=== PATIENT | male | born 2000 | race Two or more races ===

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

== ENCOUNTER 2020-07-27 08:14 | Emergency (ER) | payer MEDICAID ==
[~2020-07-27] VITALS: Ht 185.4 cm; Wt 122.5 kg
[2020-07-27 08:15] VITALS: BP 154/100
== END 2020-07-27 09:20 | disposition left against medical advice (07) ==
LOC: ER 08:14
DX: R11.2 Nausea with vomiting, unspecified (principal); Z53.21 Procedure and treatment not carried out due to patient leaving prior to being seen by health care provider

== ENCOUNTER 2020-09-06 10:24 | Emergency (ER) | payer MEDICAID ==
[~2020-09-06] VITALS: Ht 185.4 cm; Wt 122.5 kg
[2020-09-06 12:00] VITALS: BP 149/102
[2020-09-06] MEDS ORDERED: IBUPROFEN 800 MG TAB PO ONE (12:15)
== END 2020-09-06 13:00 | disposition home or self-care (01) ==
LOC: ER 10:24
DX: S63.277A Dislocation of unspecified interphalangeal joint of left little finger, initial encounter (principal); F17.210 Nicotine dependence, cigarettes, uncomplicated; F12.10 Cannabis abuse, uncomplicated; W26.8XXA Contact with other sharp object(s), not elsewhere classified, initial encounter; Y93.89 Activity, other specified; Y92.89 Other specified places as the place of occurrence of the external cause; Y99.8 Other external cause status
CPT/HCPCS: 26770; 73140

== ENCOUNTER 2021-03-15 02:36 | Emergency (ER) | payer MEDICAID ==
[~2021-03-15] VITALS: Ht 182.9 cm; Wt 95.3 kg
[2021-03-15 02:50] VITALS: BP 153/94
[2021-03-15] MEDS ORDERED: SODIUM CHLORIDE 0.9% 1,000 ML IV ONE (04:00)
[2021-03-15 04:13] LABS: Basophils # (auto) 0 10 ^3/uL (0-0.2); Basophils % (auto) 0.2 % (0.0-2.0); Eosinophils # (auto) 0 10 ^3/uL (0-0.8); Eosinophils % (auto) 0.3 % (0.0-7.0); Hematocrit 43.4 % (41.0-53.0); Lymphocytes # (auto) 1.1 10 ^3/uL (0.4-5.4); Lymphocytes % (auto) 9.9 % (10.0-50.0); Mean Corpuscular Hemoglobin 30.2 pg (28.0-32.0); Mean Corpuscular Hgb Conc. 34.5 g/dL (32.0-36.0); Mean Corpuscular Volume 87.5 fL (80.0-100.0); Monocytes # (auto) 0.7 10 ^3/uL (0-1.3); Monocytes % (auto) 6.9 % (0.0-12.0); Neutrophils # (auto) 8.9 10 ^3/uL (1.6-8.6); Neutrophils % (auto) 82.7 % (37.0-80.0); Nucleated Red Blood Cells % 0.1 %; Red Blood Cells 4.96 10^6/uL (4.5-5.90); Red Cell Distribution Width 13.3 % (11.8-14.3); White Blood Cell 10.8 10^3/uL (4.4-10.8)
[2021-03-15 04:27] LABS: Anion Gap 8 (5-15); Blood Urea Nitrogen 13 mg/dL (7-18); Calcium 7.8 mg/dL (8.5-10.1); Carbon Dioxide 26 mmol/L (21-32); Chloride 103 mmol/L (98-107); Sodium 137 mmol/L (136-145)
[2021-03-15 04:30] LABS: Alanine Aminotransferase 73 U/L (16-61); Aspartate Aminotransferase 31 U/L (15-37); BUN/Creatinine Ratio 15.5; Blood Alcohol < 3.0 mg/dL (0-5); GFR African American 148 mL/min; GFR Non-African American 123 mL/min; Glucose 98 mg/dL (74-106)
[2021-03-15 04:32] LABS: Alkaline Phosphatase 118 U/L (45-117); Bilirubin, Total 0.6 mg/dL (0.2-1.0); Total Protein 7.4 g/dL (6.4-8.2)
[2021-03-15 04:35] LABS: Salicylate < 1.7 mg/dL (2.8-20.0)
[2021-03-15 04:44] LABS: Acetaminophen < 2.0 ug/mL (10-30)
[2021-03-15 04:50] LABS: Alcohol, Urine < 3.0 mg/dL (0-10); Amphetamine Screen, Urine NEGATIVE (NEGATIVE); Barbiturate Scree,Urine NEGATIVE (NEGATIVE); Cannabinoid Screen, Urine POSITIVE (NEGATIVE)
[2021-03-15 04:58] LABS: Benzodiazephine Screen, Urine NEGATIVE (NEGATIVE); Cocaine Screen, Urine NEGATIVE (NEGATIVE); Opiate Scree,Urine NEGATIVE (NEGATIVE); Phencyclidine Screen, Urine NEGATIVE (NEGATIVE)
[2021-03-15 05:20] LABS: Urine Bacteria FEW /hpf (None Seen); Urine Blood Negative /uL (Negative); Urine Specific Gravity 1.006 (1.001-1.035); Urine WBC 65 /hpf (0 - 3)
== END 2021-03-15 05:31 | disposition left against medical advice (07) ==
LOC: EDBD 02:36 → ER 02:36
DX: R11.2 Nausea with vomiting, unspecified (principal); Z53.21 Procedure and treatment not carried out due to patient leaving prior to being seen by health care provider
CPT/HCPCS: 36415; 80053; 80307; 80320; 80329; 81001; 85025

== ENCOUNTER 2021-04-21 17:56 | Emergency (ER) | payer MEDICAID ==
[~2021-04-21] VITALS: Ht 182.9 cm; Wt 131.5 kg
[2021-04-21 18:34] VITALS: BP 127/81
[2021-04-21] MEDS ORDERED: ACETAMINOPHEN 325 MG TAB PO ONE (19:30)
[2021-04-21] MEDS ORDERED: LIDOCAINE 5% TOPICAL PATCH TOP ONE (20:00)
[2021-04-21] MEDS ORDERED: LIDO5DIS21 TOP (20:01)
== END 2021-04-21 20:37 | disposition home or self-care (01) ==
LOC: ER 17:56 → EDBD 17:56 → ER 20:37
DX: S22.32XA Fracture of one rib, left side, initial encounter for closed fracture (principal); F17.210 Nicotine dependence, cigarettes, uncomplicated; X58.XXXA Exposure to other specified factors, initial encounter; Y93.89 Activity, other specified; Y92.89 Other specified places as the place of occurrence of the external cause; Y99.8 Other external cause status
CPT/HCPCS: 71045

== ENCOUNTER 2021-05-27 16:36 | Emergency (ER) | payer MEDICAID ==
[~2021-05-27] VITALS: Ht 182.9 cm; Wt 99.8 kg
[~2021-05-27 16:36] MED LIST: LIDO5DIS21 TOP
[2021-05-27 19:05] LABS: Anion Gap 9 (5-15); BUN/Creatinine Ratio 8.6; Basophils # (auto) 0 10 ^3/uL (0-0.2); Basophils % (auto) 0.1 % (0.0-2.0); Blood Urea Nitrogen 7 mg/dL (7-18); Carbon Dioxide 23 mmol/L (21-32); Chloride 107 mmol/L (98-107); Eosinophils # (auto) 0 10 ^3/uL (0-0.8); Eosinophils % (auto) 0.2 % (0.0-7.0); Glucose 95 mg/dL (74-106); Hematocrit 46.3 % (41.0-53.0); Hemoglobin 15.7 g/dL (13.5-17.5); Lymphocytes # (auto) 0.9 10 ^3/uL (0.4-5.4); Lymphocytes % (auto) 6.9 % (10.0-50.0); Mean Corpuscular Hemoglobin 29.7 pg (28.0-32.0); Mean Corpuscular Hgb Conc. 33.9 g/dL (32.0-36.0); Mean Corpuscular Volume 87.6 fL (80.0-100.0); Monocytes # (auto) 0.8 10 ^3/uL (0-1.3); Monocytes % (auto) 6.3 % (0.0-12.0); Neutrophils # (auto) 11.1 10 ^3/uL (1.6-8.6); Neutrophils % (auto) 86.5 % (37.0-80.0); Nucleated Red Blood Cells % 0.1 %; Potassium 3.5 mmol/L (3.5-5.1); Red Blood Cells 5.29 10^6/uL (4.5-5.90); Red Cell Distribution Width 14.1 % (11.8-14.3); Sodium 139 mmol/L (136-145); White Blood Cell 12.9 10^3/uL (4.4-10.8)
[2021-05-27 19:06] LABS: Albumin 4.3 g/dL (3.4-5.0); Calcium 8.4 mg/dL (8.5-10.1); GFR African American 155 mL/min; GFR Non-African American 128 mL/min
[2021-05-27 19:08] LABS: Salicylate < 1.7 mg/dL (2.8-20.0)
[2021-05-27 19:14] LABS: Alanine Aminotransferase 76 U/L (16-61); Alkaline Phosphatase 116 U/L (45-117); Aspartate Aminotransferase 34 U/L (15-37); Bilirubin, Total 0.4 mg/dL (0.2-1.0); Blood Alcohol < 3.0 mg/dL (0-5); Total Protein 7.8 g/dL (6.4-8.2)
[2021-05-27 19:18] LABS: Acetaminophen < 2.0 ug/mL (10-30)
[2021-05-27] MEDS ORDERED: LORazepam 2MG/ML-1ML VIAL ONE (22:07)
[2021-05-28 01:26] LABS: Alanine Aminotransferase 69 U/L (16-61); Aspartate Aminotransferase 32 U/L (15-37)
[2021-05-28] MEDS ORDERED: ACETAMINOPHEN 325 MG TAB PO ONE (02:15)
[2021-05-28 03:40] LABS: Urine Bacteria NONE SEEN /hpf (None Seen); Urine Blood TRACE /uL (Negative); Urine Hyaline Cast FEW /lpf (0 - 2); Urine Mucus FEW (None Seen); Urine Specific Gravity 1.025 (1.001-1.035); Urine WBC 50 /hpf (0 - 3)
[2021-05-28 03:46] LABS: Amphetamine Screen, Urine NEGATIVE (NEGATIVE); Barbiturate Scree,Urine NEGATIVE (NEGATIVE); Benzodiazephine Screen, Urine NEGATIVE (NEGATIVE); Cocaine Screen, Urine NEGATIVE (NEGATIVE); Opiate Scree,Urine NEGATIVE (NEGATIVE); Phencyclidine Screen, Urine NEGATIVE (NEGATIVE)
[2021-05-28 03:54] LABS: Cannabinoid Screen, Urine POSITIVE (NEGATIVE)
[2021-05-28 05:08] VITALS: BP 104/45
== END 2021-05-28 05:10 | disposition home or self-care (01) ==
LOC: EDBD 16:36 → ER 16:36
DX: T40.0X1A Poisoning by opium, accidental (unintentional), initial encounter (principal); F13.139 Sedative, hypnotic or anxiolytic abuse with withdrawal, unspecified; R56.9 Unspecified convulsions; F17.210 Nicotine dependence, cigarettes, uncomplicated; F12.10 Cannabis abuse, uncomplicated; Y92.89 Other specified places as the place of occurrence of the external cause
CPT/HCPCS: 36415; 70450; 71045; 80053; 80307; 80320; 80329; 81001; 84450; 84460; 85025; 93005; 99285; J2060

== ENCOUNTER 2021-09-06 21:35 | Emergency (ER) | payer MEDICAID ==
[~2021-09-06] VITALS: Ht 185.4 cm; Wt 116.6 kg
[2021-09-06] MEDS ORDERED: LORazepam 2MG/ML-1ML VIAL IM ONE (22:00)
[2021-09-06 23:30] VITALS: BP 143/91
== END 2021-09-06 23:33 | disposition home or self-care (01) ==
LOC: ER 21:35
DX: F41.9 Anxiety disorder, unspecified (principal); F10.10 Alcohol abuse, uncomplicated; F17.210 Nicotine dependence, cigarettes, uncomplicated; F12.10 Cannabis abuse, uncomplicated
CPT/HCPCS: 96372; 99283; J2060

== ENCOUNTER 2024-08-13 15:51 | Emergency (ER) | payer MEDICAID ==
[~2024-08-13] VITALS: Ht 185.4 cm; Wt 127.2 kg
[2024-08-13 16:08] VITALS: TEMP 98
[2024-08-13 16:24] VITALS: RESP 17; O2SAT 98
[2024-08-13 16:27] LABS: Urine Bacteria None Seen /hpf (None Seen)
[2024-08-13 16:35] LABS: Urine Blood Negative /uL (Negative); Urine Clarity Clear (Clear); Urine Color Light-Yellow (Yellow); Urine Protein, UAD Negative (Negative); Urine Specific Gravity 1.014 (1.001-1.035); Urine Squamous Epithelial Cell FEW /hpf (<5); Urine Urobilinogen Normal (Negative); Urine WBC 1 /HPF (0-3)
[2024-08-13 16:35] LABS: Basophils # (auto) 0 10 ^3/uL (0-0.2); Basophils % (auto) 0.3 % (0.0-2.0); Eosinophils # (auto) 0.1 10 ^3/uL (0-0.8); Eosinophils % (auto) 1.1 % (0.0-7.0); Hemoglobin 15.7 g/dL (13.5-17.5); Lymphocytes # (auto) 1.7 10 ^3/uL (0.4-5.4); Lymphocytes % (auto) 18.6 % (10.0-50.0); Mean Corpuscular Hemoglobin 30.6 pg (28.0-32.0); Mean Corpuscular Volume 87.3 fL (80.0-100.0); Monocytes # (auto) 0.6 10 ^3/uL (0-1.3); Monocytes % (auto) 6.5 % (0.0-12.0); Neutrophils # (auto) 6.7 10 ^3/uL (1.6-8.6); Neutrophils % (auto) 73.5 % (37.0-80.0); Nucleated Red Blood Cells % 0.1 %; Platelet Count (auto) 326 10^3/uL (140-450); Red Blood Cells 5.15 10^6/uL (4.5-5.90); Red Cell Distribution Width 13.4 % (11.8-14.3); White Blood Cell 9.2 10^3/uL (4.4-10.8)
[2024-08-13 16:42] LABS: Potassium 3.7 mmol/L (3.5-5.1); Sodium 143 mmol/L (136-145)
[2024-08-13 16:43] LABS: Anion Gap 10 (5-15); Calcium 9.6 mg/dL (8.7-10.4); Carbon Dioxide 26 mmol/L (20-31)
[2024-08-13 16:45] LABS: Chloride 107 mmol/L (98-107)
[2024-08-13 16:48] LABS: BUN/Creatinine Ratio 8.1 (10.0-20.0); Blood Urea Nitrogen 6 mg/dL (9-23); Glucose 98 mg/dL (74-106)
--- NOTE | 2024-08-13 17:02 | ED.PDOC ---
History of Present Illness HPI Comments 23-year-old male presents to the ER with prior medical history of anxiety, seizures, UTI and the chief complaint of dizziness. Patient reports on having chest wall pain with palpation and dizziness for the past two months. Patient states he did see his PCP over a month ago and was scheduled for a follow up appointment tomorrow but the reason for him coming in today is due from feeling different and wanted to get checked out. Denies chills, fever, N/V/D, SOB. No other associated symptoms, modifiers, recent injuries or sick contacts present at this time. Chief Complaint: Dizziness Time Seen by MD: 16:05 Primary Care Provider: HERMAN Alejo Notes: Nurses Notes, Medications, Allergies Allergies: Coded Allergies: NO KNOWN ALLERGIES (Unverified , 09/18/17) Home Meds Active Scripts Lidocaine (LIDODERM 5% TOPICAL PATCH) 1 Patch Ph, 1 PATCH TOP DAILY, #30 PATCH 1 Refill Prov:OMAR PHILIP MD 04/21/21 Information Source: Patient Mode of Arrival: Ambulatory Severity: Moderate Timing: Months Duration: Since onset Prehospital treatment: None Past Medical History PAST MEDICAL HISTORY: Anxiety, Seizures, UTI'S Surgical History: Denies all surgeries Family History Family History: Reviewed,noncontributory to illness, Unknown Social History Smoker: Unknown Alcohol: Unknown Drugs: Unknown Lives In: Home Constitutional: denies: chills, diaphoresis, fatigue, fever, malaise, sweats, weakness, others EENTM: denies: blurred vision, double vision, ear bleeding, ear discharge, ear drainage, ear pain, ear ringing, eye pain, eye redness, hearing loss, mouth pain, mouth swelling, nasal discharge, nose bleeding, nose congestion, nose pain, photophobia, tearing, throat pain, throat swelling, voice changes, others Respiratory: denies: cough, hemoptysis, orthopnea, SOB at rest, shortness of breath, SOB with excertion, stridor, wheezing, others Cardiovascular: reports: chest pain, palpitations; denies: dizzy spells, diaphoresis, Dyspnea on exertion, edema, irregular heart beat, left arm pain, lightheadedness, PND, syncope, others Gastrointestinal: denies: abdomen distended, abdominal pain, blood streaked bowels, constipated, diarrhea, dysphagia, difficulty swallowing, hematemesis, melena, nausea, poor appetite, poor fluid intake, rectal bleeding, rectal pain, vomiting, others Genitourinary: denies: burning, dysuria, flank pain, frequency, hematuria, incontinence, penile discharge, penile sore, pain, testicle pain, testicle swelling, urgency, others Neurological: reports: dizziness; denies: fainting, headache, left sided numbness, left sided weakness, numbness, paresthesia, pre-existing deficit, right sided numbness, right sided weakness, seizure, speech problems, tingling, tremors, weakness, others Musculoskeletal: denies: back pain, gout, joint pain, joint swelling, muscle pain, muscle stiffness, neck pain, others Integumetry: denies: bruises, change in color, change in hair/nails, dryness, laceration, lesions, lumps, rash, wounds, others Allergic/Immunocompromised: denies: Difficulty Healing, Frequent Infections, Hives, Itching, others Hematologic/Lymphatic: denies: anemia, blood clots, easy bleeding, easy bruising, swollen glands, others Endocrine: denies: excessive hunger, excessive sweating, excessive thirst, excessive urination, flushing, intolerance to cold, intolerance to heat, unexplained weight gain, unexplained weight loss, others Psychiatric: denies: anxiety, bipolar disorder, depression, hopeless, panic disorder, schizophrenia, sleepless, suicidal, others All Other Systems: Reviewed and Negative Physical Exam General Appearance: No Apparent Distress, Normal HEENT: Normal ENT Inspection, Pharynx Normal, TMs Normal Neck: Full Range of Motion, Non-Tender, Normal, Normal Inspection Respiratory: Chest Non-Tender, Lungs Clear, No Accessory Muscle Use, No Respiratory Distress, Normal Breath Sounds Cardiovascular: No Edema, No JVD, No Murmur, No Gallop, Normal Peripheral Pulses, Regular Rate/Rhythm Breast Exam: Deferred Gastrointestinal: No Organomegaly, Non Tender, No Pulsatile Mass, Normal Bowel Sounds, Soft Genitalia: Deferred Pelvic: Deferred Rectal: Deferred Extremities: No calf tenderness, Normal capillary refill, Normal inspection, Normal range of motion, Non-tender, No pedal edema Musculoskeletal : Apperance: Normal 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 Was a procedure done?: No EKG EKG : Pulse Rate (adult): 75 [place]: Normal Cardiac Rhythm: NSR Block: None Hypertrophy: None ST: Normal Differential Dx Considerations may include: CO, anxiety, chest wall pain, palpitations X-Ray, Labs, Meds, VS Vital Signs Date Time Temp Pulse Resp B/P (MAP) Pulse Ox O2 Delivery O2 Flow Rate FiO2 08/13/24 17:56 78 18 126/78 (94) 95 08/13/24 17:02 75 08/13/24 16:24 17 98 Room Air* 0 21 08/13/24 16:13 75 08/13/24 16:08 98.0 83 18 150/77 (101) 96 98.0 08/13/24 16:08 98.0 83 18 150/77 (101) 96 98.0 Lab Test 08/13/24 16:50 08/13/24 16:22 08/13/24 16:11 Range/Units Troponin I High Sensitivity < 3 L < 3 L </=54 ng/L White Blood Count 9.2 4.4-10.8 10^3/uL Red Blood Count 5.15 4.5-5.90 10^6/uL Hemoglobin 15.7 13.5-17.5 g/dL Hematocrit 45.0 41.0-53.0 % Mean Corpuscular Volume 87.3 80.0-100.0 fL Mean Corpuscular Hemoglobin 30.6 28.0-32.0 pg Mean Corpuscular Hemoglobin Concent 35.0 32.0-36.0 g/dL Red Cell Distribution Width 13.4 11.8-14.3 % Platelet Count 326 140-450 10^3/uL Mean Platelet Volume 8.0 6.9-10.8 fL Neutrophils (%) (Auto) 73.5 37.0-80.0 % Lymphocytes (%) (Auto) 18.6 10.0-50.0 % Monocytes (%) (Auto) 6.5 0.0-12.0 % Eosinophils (%) (Auto) 1.1 0.0-7.0 % Basophils (%) (Auto) 0.3 0.0-2.0 % Neutrophils # (Auto) 6.7 1.6-8.6 10 ^3/uL Lymphocytes # (Auto) 1.7 0.4-5.4 10 ^3/uL Monocytes # (Auto) 0.6 0-1.3 10 ^3/uL Eosinophils # (Auto) 0.1 0-0.8 10 ^3/uL Basophils # (Auto) 0 0-0.2 10 ^3/uL Nucleated Red Blood Cells 0.1 % Sodium Level 143 136-145 mmol/L Potassium Level 3.7 3.5-5.1 mmol/L Chloride Level 107 98-107 mmol/L Carbon Dioxide Level 26 20-31 mmol/L Anion Gap 10 5-15 Blood Urea Nitrogen 6 L 9-23 mg/dL Creatinine 0.74 0.700-1.30 mg/dL Glomerular Filtration Rate Calc 130 >90 mL/min BUN/Creatinine Ratio 8.1 L 10.0-20.0 Serum Glucose 98 74-106 mg/dL Calcium Level 9.6 8.7-10.4 mg/dL Urine Color Light-yellow Yellow Urine Clarity Clear Clear Urine pH 7.0 5.0-9.0 Urine Specific [place] 1.014 1.001-1.035 Urine Protein Negative Negative Urine Ketones Negative Negative Urine Blood Negative Negative /uL Urine Nitrite Negative Negative Urine Bilirubin Negative Negative Urine Urobilinogen Normal Negative mg/dL Urine Leukocyte Esterase Negative Negative /uL Urine RBC 1 0 - 3 /hpf Urine Microscopic WBC 1 0-3 /HPF Urine Squamous Epithelial Cells Few <5 /hpf Urine Bacteria None seen None Seen /hpf Urine Glucose Normal Normal mg/dL X-Ray, Labs, Meds, VS Comment Imaging: X-rays and CT scans were reviewed and interpreted by this provider, imaging shows no fractures and no pathological disease. Pending radiology review. Laboratory: Labs reviewed and interpreted by this provider. No significant abnormalities noted. Patient has prior medical visits reviewed. Med reconciliation performed Vital signs reviewed Time of 1ST Reevaluation: 16:35 Reevaluation 1ST: Unchanged Patient Education/Counseling: Diagnosis, Treatment, Prognosis, Need For Follow Up (Follow up with PCP tomorrow as scheduled.) Family Education/Counseling: No Family Present Departure 1 Departure Time of Disposition: 18:09 Impression: Primary Impression: Palpitations Additional Impression: Anxiety Disposition: 01 HOME / SELF CARE / HOMELESS Condition: Fair Discharged With: Self Critical Care Note Critical Care Time?: No Stability Stability form required: No Heart Score Heart Score: Heart Score Response (Comments) Value History Slightly Suspicious 0 EKG Normal 0 Age <45 0 Risk Factors No known risk factors 0 Troponin Normal limit 0 Total 0 I personally scribed for ZEB MALLORY ([email or web address]) on 08/13/24 at 17:02. Electronically submitted by Gerry Gallegos ([email or web address]). ZEB MALLORY Aug 13, 2024 17:02
--- NOTE | 2024-08-13 17:28 | DVH ---
EXAM: XR Chest, 1 View CLINICAL INDICATION: cp TECHNIQUE: Frontal view of the chest. COMPARISON: CHEST PORTABLE on DOS: 05/27/21, CXRP on DOS: 05/27/21, CHEST XRAY 1 VIEW on DOS: 04/21/21 FINDINGS: LUNGS AND PLEURAL SPACES: Unremarkable. No consolidation. No pneumothorax. HEART: Unremarkable. No cardiomegaly. MEDIASTINUM: Unremarkable. Normal mediastinal contour. BONES/JOINTS: Unremarkable. No acute fracture. OTHER FINDINGS: . IMPRESSION: No acute cardiopulmonary process.
[2024-08-13 17:56] VITALS: BP 126/78; PULSE 78; RESP 18; O2SAT 95
--- NOTE | 2024-08-14 10:59 | ECG ---
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
== END 2024-08-13 18:21 | disposition home or self-care (01) ==
LOC: ER 15:51
DX: R00.2 Palpitations (principal); R07.89 Other chest pain; F41.9 Anxiety disorder, unspecified; F17.200 Nicotine dependence, unspecified, uncomplicated; Z87.440 Personal history of urinary (tract) infections
CPT/HCPCS: 36415; 71045; 80048; 81001; 84484; 85025; 93005